=== PATIENT | male | born 1955 | race Caucasian/White ===

== ENCOUNTER 2017-10-27 23:47 | Inpatient (IN) | payer MEDICARE, MEDICAID ==
[2017-10-28] MEDS ORDERED: SODIUM CHLOR 0.9% 1000 ML INJ 1,000 ML IV (00:02)
[2017-10-28 00:15] LABS: BLOOD GAS BASE EXCESS -18.9 mmol/L (-2-2); BLOOD GAS CARBOXYHEMOGLOBIN 0.2 % (0-4); BLOOD GAS HCO3 10 mmol/L (22-26); BLOOD GAS METHEMOGLOBIN 0.8 % (0-2); BLOOD GAS O2 HGB SATURATION 98 % (90-100); BLOOD GAS OXYGEN CONTENT 24.2 Vol % (12.0-20.0); BLOOD GAS PCO2 43 mmHg (38-42); BLOOD GAS PO2 329 mmHG (61-120); BLOOD GAS TOTAL HGB 17.1 G/DL (12.0-16.0); CRITICAL VALUE YES; OXYGEN DEVICE VENTILATOR; TEMP CORR TO 98.6
[2017-10-28] MEDS ORDERED: SODIUM CHLORIDE 0.9% FLUSH 10 ML FLUSH IVF (00:15)
[2017-10-28] MEDS ORDERED: TERBUTALINE INJ 1 MG/ML AMP SQ ×3 (00:15→03:00)
[2017-10-28] MEDS: ASPIRIN 300 MG SUPP RECTAL (00:15)
[2017-10-28 00:16] LABS: DRAW SITE RT FEMORAL; FIO2 100 %; NUMBER OF ARTERIAL PUNCTURES 1; STAT YES; ULNAR PULSE PRESENT; VENT SETTINGS PRVC / AC /
[2017-10-28 00:19] LABS: AUTOMATED NEUTROPHIL # 2.8 TH/MM3 (1.8-7.7); BASOPHIL # 0.1 TH/MM3 (0-0.2); BASOPHIL % 0.8 % (0.0-2.0); EOSINOPHIL # 0.1 TH/MM3 (0-0.4); EOSINOPHIL % 0.9 % (0.0-4.0); HEMATOCRIT 53.8 % (39.0-51.0); HEMOGLOBIN 18.5 GM/DL (13.0-17.0); LYMPH % 66.6 % (9.0-44.0); LYMPHOCYTE # 6.3 TH/MM3 (1.0-4.8); MEAN CELL VOLUME 95.5 FL (80.0-100.0); MEAN CORPUSCULAR HEMOGLOBIN 32.8 PG (27.0-34.0); MEAN CORPUSCULAR HGB CONC 34.3 % (32.0-36.0); MEAN PLATELET VOLUME 9.7 FL (7.0-11.0); MONO % 1.7 % (0.0-8.0); MONOCYTE # 0.2 TH/MM3 (0-0.9); PLATELET COUNT 148 TH/MM3 (150-450); RED BLOOD COUNT 5.63 MIL/MM3 (4.50-5.90); RED CELL DISTRIBUTION WIDTH 14.6 % (11.6-17.2); WHITE BLOOD COUNT 9.4 TH/MM3 (4.0-11.0)
[2017-10-28 00:20] LABS: I-STAT BLOOD UREA NITROGEN 9 MG/DL (5-21); I-STAT CHLORIDE 98 MMOL/L (102-111); I-STAT CREATININE 1.1 MG/DL (0.6-1.3); I-STAT GLUCOSE 399 MG/DL (68-110); I-STAT HEMOGLOBIN (CALC.) 18.7 G/DL (13.0-17.0); I-STAT POTASSIUM 2.8 MMOL/L (3.6-5.0); I-STAT SODIUM 137 MMOL/L (137-144)
[2017-10-28 00:22] LABS: HEMO FLAGS AUTO DIFF
[2017-10-28] MEDS: SODIUM BICARBONATE 8.4% INJ 50 MEQ/50 ML SYR IV PUSH (00:30)
[2017-10-28 00:32] LABS: APTT (PATIENT) 25.9 SEC (24.3-30.1); PROTHROMBIN TIME - PATIENT 10.6 SEC (9.8-11.6)
[2017-10-28 00:36] LABS: CALCIUM 7.7 MG/DL (8.5-10.1); MAGNESIUM 2.8 MG/DL (1.5-2.5)
[2017-10-28 00:39] LABS: CREATINE KINASE 296 U/L (39-308); POTASSIUM 2.8 MEQ/L (3.5-5.1); TROPONIN I 0.06 NG/ML (0.02-0.05)
[2017-10-28 00:49] LABS: ALCOHOL 309 MG/DL (0-5)
[2017-10-28 00:54] LABS: CKMB 9.1 NG/ML (0.5-3.6)
[2017-10-28 00:55] LABS: BANDS 5 % (0-6); METAMYELOCYTES 1 % (0-1); MONOCYTES 1 % (0-8); MYELOCYTES 1 % (0-0); NEUTROPHIL # MANUAL DIFF 2.9 TH/MM3 (1.8-7.7); POLYS (SEG NEUTROPHILS) 24 % (16-70); WBC DIFF SAMPLE 100
[2017-10-28 00:56] LABS: LYMPHOCYTES 68 % (9-44); SCAN/DIFF FINAL DIFF MANUAL
[2017-10-28 00:59] LABS: PLATELET MORPHOLOGY NORMAL (NORMAL)
[2017-10-28 01:00] LABS: PLATELET ESTIMATE SMEAR NORMAL (NORMAL)
[2017-10-28 01:03] LABS: B-TYPE NATRIURETIC PEPTIDE 24 PG/ML (0-100)
[2017-10-28] MEDS: NOREPINEPHRINE 4 MG/4 ML AMP (01:07)
[2017-10-28] MEDS: IOHEXOL 350 MG/ML 10 ML VIAL (for RAD DIAG) IVCONTRAST (02:15)
[2017-10-28] MEDS: DOPamine 800 MG/500 ML INJ 500 ML IV ×2 (02:32→03:27)
[2017-10-28] MEDS: SODIUM CHLOR 0.9% 1000 ML INJ 1,000 ML IV ×4 (02:43→20:00)
[2017-10-28] MEDS ORDERED: CHLORHEXIDINE GLUCONATE 2 % 1 PACK (2 CLOTHS) TOP (02:45)
[2017-10-28] MEDS: NURSING INFORMATION XX (02:45)
[2017-10-28] MEDS ORDERED: RESP: ALBUTEROL 2.5 MG/IPRATROPIUM 0.5 MG NEB (PRN) INH (02:45)
[2017-10-28] MEDS ORDERED: ACETAMINOPHEN 325 MG TAB PO (02:45)
[2017-10-28] MEDS: PROPOFOL 500 MG/50 ML INJ 50 ML (03:12)
[2017-10-28] MEDS: PHENYLEPHRINE INJ 40 MG in DEXTROSE 5% IN WATE 500 ML INJ 496 ML IV (03:25)
[2017-10-28] MEDS: NOREPINEPHRINE-DEXTROSE DRIP 250 ML IV ×2 (03:26→04:39)
[2017-10-28] MEDS: POTASSIUM CHLOR 40 MEQ PREMIX 100 ML IV ×2 (03:30→06:17)
[2017-10-28] MEDS: PROPOFOL 1000 MG/100 ML IV ×4 (04:00→23:08)
[2017-10-28] MEDS: ENOXAPARIN SODIUM 40 MG/0.4 ML SYRINGE SQ (04:00)
[2017-10-28] MEDS: CHLORHEXIDINE GLUCONATE 2 % 1 PACK (2 CLOTHS) TOP (04:00)
[2017-10-28] MEDS: RESP: ALBUTEROL 2.5 MG/IPRATROPIUM 0.5 MG NEB (SCH) NEB ×4 (04:10→20:23)
[2017-10-28] MEDS: ROCURONIUM INJ 50 MG/5 ML VIAL IV (04:30)
[2017-10-28] MEDS: levETIRAcetam INJ 100 ML IV ×2 (04:39→15:38)
[2017-10-28 04:59] LABS: BLOOD GAS BASE EXCESS -22.1 mmol/L (-2-2); BLOOD GAS HCO3 7 mmol/L (22-26); BLOOD GAS METHEMOGLOBIN 1.7 % (0-2); BLOOD GAS O2 HGB SATURATION 93 % (90-100); BLOOD GAS OXYGEN CONTENT 21.7 Vol % (12.0-20.0); BLOOD GAS PCO2 33 mmHg (38-42); BLOOD GAS PO2 109 mmHg (61-120); BLOOD GAS TOTAL HGB 16.6 G/DL (12.0-16.0); CRITICAL VALUE YES; OXYGEN DEVICE VENTILATOR; TEMP CORR TO 98.6
[2017-10-28 05:00] LABS: DRAW SITE RT RADIAL; FIO2 50 %; NUMBER OF ARTERIAL PUNCTURES 1; STAT NO; ULNAR PULSE PRESENT
[2017-10-28 05:06] LABS: LACTIC ACID 10.6 mmol/L (0.4-2.0)
[2017-10-28 05:16] LABS: CREATINE KINASE 1165 U/L (39-308)
[2017-10-28 05:19] LABS: TROPONIN I 4.46 NG/ML (0.02-0.05)
[2017-10-28] MEDS: SODIUM BICARBONATE 8.4% SOLN 50 MEQ/50 ML VIAL IV (05:25)
[2017-10-28 05:33] LABS: CKMB 45.6 NG/ML (0.5-3.6); CKMB % 3.9 % (0.0-4.0)
[2017-10-28] MEDS: DEXT 5%-NACL 0.9% 1000 ML INJ 1,000 ML IV ×2 (05:33→10:33)
[2017-10-28] MEDS: INSULIN HUMAN REGULAR 1,000 UNITS/10 ML VIAL IV PUSH (05:38)
[2017-10-28] MEDS ORDERED: POTASSIUM CHLOR 40 MEQ PREMIX 100 ML IV ×2 (05:45)
[2017-10-28] MEDS ORDERED: SODIUM BICARBONATE 8.4% SOLN 50 MEQ/50 ML VIAL IV PUSH (05:45)
[2017-10-28] MEDS ORDERED: POTASSIUM CHLOR 20 MEQ PREMIX 100 ML IV ×4 (05:45)
[2017-10-28] MEDS ORDERED: SODIUM PHOSPHATE INJ 15 MMOL in SODIUM CHLORIDE 0.9% INJ 100 ML IV (05:45)
[2017-10-28] MEDS: INSULIN ASPART SUPPLEMENTAL SCALE SQ ×2 (06:00→12:00)
[2017-10-28] MEDS: SODIUM BICARBONATE 8.4% INJ 150 MEQ in WATER STERILE FOR INJ 850 ML IV ×2 (06:03→12:49)
[2017-10-28] MEDS: CALCIUM CHLORIDE INJ 1 GM in SODIUM CHLORIDE 0.9% INJ 100 ML IV (06:03)
[2017-10-28] MEDS: INSULIN REGULAR (IV INFUSION) 100 UNITS in SODIUM CHLORIDE 0.9% INJ 99 ML IV ×2 (06:12→13:19)
[2017-10-28 06:37] LABS: AUTOMATED NEUTROPHIL # 14.7 TH/MM3 (1.8-7.7); BASOPHIL # 0.1 TH/MM3 (0-0.2); BASOPHIL % 0.6 % (0.0-2.0); HEMATOCRIT 47.9 % (39.0-51.0); HEMO FLAGS DIFF FINAL; LYMPH % 12.8 % (9.0-44.0); LYMPHOCYTE # 2.3 TH/MM3 (1.0-4.8); MEAN CELL VOLUME 96.2 FL (80.0-100.0); MEAN CORPUSCULAR HEMOGLOBIN 32.2 PG (27.0-34.0); MEAN CORPUSCULAR HGB CONC 33.5 % (32.0-36.0); MONO % 5.3 % (0.0-8.0); NEUT % 81.3 % (16.0-70.0); PLATELET COUNT 175 TH/MM3 (150-450); RED BLOOD COUNT 4.98 MIL/MM3 (4.50-5.90); RED CELL DISTRIBUTION WIDTH 14.1 % (11.6-17.2)
[2017-10-28 07:22] LABS: ALKALINE PHOSPHATASE 55 U/L (45-117); ALT (GPT) 276 U/L (12-78); ANION GAP 26 MEQ/L (5-15); AST (GOT) 636 U/L (15-37); BETA-HYDROXYBUTYRATE 1.33 MMOL/L (0.00-0.39); BICARBONATE 12.3 MEQ/L (21.0-32.0); BLOOD UREA NITROGEN 10 MG/DL (7-18); CHLORIDE 101 MEQ/L (98-107); CREATININE 1.47 MG/DL (0.60-1.30); GLOMERULAR FILTRATION RATE 49 ML/MIN (>89); LIPASE 237 U/L (73-393); MAGNESIUM 1.9 MG/DL (1.5-2.5); PHOSPHORUS 4.5 MG/DL (2.5-4.9); POTASSIUM 5.4 MEQ/L (3.5-5.1); SODIUM (NA) 139 MEQ/L (136-145); TOTAL BILIRUBIN ADULT 0.3 MG/DL (0.2-1.0); TOTAL PROTEIN 6.1 GM/DL (6.4-8.2)
[2017-10-28 07:24] LABS: MRSA PCR SURVEILLANCE MRSA NOT DETECTED (NOT DETECT)
[2017-10-28 07:25] LABS: CALCIUM 6.3 MG/DL (8.5-10.1); CALCIUM-PROTEIN CORRECTED 6.8 MG/DL (8.5-10.1); GLUCOSE,RANDOM 541 MG/DL (74-106)
[2017-10-28 08:13] LABS: BLOOD GAS BASE EXCESS -21.2 mmol/L (-2-2); BLOOD GAS CARBOXYHEMOGLOBIN 0.1 % (0-4); BLOOD GAS HCO3 7 mmol/L (22-26); BLOOD GAS METHEMOGLOBIN 1.9 % (0-2); BLOOD GAS O2 HGB SATURATION 92 % (90-100); BLOOD GAS OXYGEN CONTENT 20.3 Vol % (12.0-20.0); BLOOD GAS PCO2 26 mmHg (38-42); BLOOD GAS PO2 103 mmHg (61-120); BLOOD GAS TOTAL HGB 15.6 G/DL (12.0-16.0); TEMP CORR TO 98.6
[2017-10-28 08:14] LABS: CRITICAL VALUE YES; DRAW SITE ART LINE; OXYGEN DEVICE VENT
[2017-10-28 08:15] LABS: FIO2 60 %
[2017-10-28 08:16] LABS: STAT NO; ULNAR PULSE PRESENT; VENT SETTINGS PRVC/AC24/500/5
[2017-10-28] MEDS: SODIUM BICARBONATE 8.4% SOLN 50 MEQ/50 ML VIAL IV PUSH (08:23)
[2017-10-28 08:32] LABS: HEMATOCRIT 46.8 % (39.0-51.0); HEMOGLOBIN 15.8 GM/DL (13.0-17.0); MEAN CELL VOLUME 96.1 FL (80.0-100.0); MEAN CORPUSCULAR HEMOGLOBIN 32.5 PG (27.0-34.0); MEAN CORPUSCULAR HGB CONC 33.8 % (32.0-36.0); MEAN PLATELET VOLUME 9.1 FL (7.0-11.0); PLATELET COUNT 187 TH/MM3 (150-450); RED BLOOD COUNT 4.87 MIL/MM3 (4.50-5.90); RED CELL DISTRIBUTION WIDTH 14.3 % (11.6-17.2); REVIEW FLAG FINAL
[2017-10-28] MEDS: PIPERACIL-TAZO 3.375 GM PREMIX 50 ML IV ×2 (08:34→15:05)
[2017-10-28] MEDS: SODIUM CHLORIDE 0.9% FLUSH 10 ML FLUSH IV FLUSH ×2 (08:42→21:00)
[2017-10-28] MEDS: ARTIFICIAL TEARS OPTH SOLN 15 ML BTL EACH EYE ×3 (08:43→17:24)
[2017-10-28] MEDS: ASPIRIN 81 MG CHEW TAB CHEW (09:00)
[2017-10-28] MEDS ORDERED: FAMOTIDINE 20 MG TAB TUBE (09:00)
[2017-10-28] MEDS: CHLORHEXIDINE 0.12% (ORAL KIT) 15 ML CUP MT ×2 (09:14→20:00)
[2017-10-28] MEDS: VANCOMYCIN INJ 1,000 MG in SODIUM CHLOR 0.9% 250 ML INJ 250 ML IV (09:16)
[2017-10-28 09:20] LABS: CREATINE KINASE 1956 U/L (39-308)
[2017-10-28 09:23] LABS: INTERNATIONAL NORMALIZED RATIO 1.1 RATIO
[2017-10-28 09:24] LABS: APTT (PATIENT) 22.1 SEC (24.3-30.1); PROTHROMBIN TIME - PATIENT 11.2 SEC (9.8-11.6)
[2017-10-28 09:33] LABS: CKMB % 3.4 % (0.0-4.0)
[2017-10-28 09:40] LABS: TROPONIN I 7.32 NG/ML (0.02-0.05)
[2017-10-28] MEDS: HEPARIN-D5W 25,000 U/250 ML 250 ML IV (09:50)
[2017-10-28 10:25] LABS: BLOOD GAS BASE EXCESS -10.8 mmol/L (-2-2); BLOOD GAS CARBOXYHEMOGLOBIN 0.7 % (0-4); BLOOD GAS HCO3 14 mmol/L (22-26); BLOOD GAS METHEMOGLOBIN 1.9 % (0-2); BLOOD GAS O2 HGB SATURATION 95 % (90-100); BLOOD GAS OXYGEN CONTENT 19.8 Vol % (12.0-20.0); BLOOD GAS PCO2 28 mmHg (38-42); BLOOD GAS PO2 93 mmHg (61-120); BLOOD GAS TOTAL HGB 14.8 G/DL (12.0-16.0); CRITICAL VALUE YES; TEMP CORR TO 98.6
[2017-10-28 10:26] LABS: DRAW SITE ART LINE; FIO2 60 %; OXYGEN DEVICE VENT; ULNAR PULSE PRESENT; VENT SETTINGS PRVC/AC 24/600/5
[2017-10-28 11:42] LABS: ANION GAP 19 MEQ/L (5-15); BICARBONATE 16.4 MEQ/L (21.0-32.0); BLOOD UREA NITROGEN 11 MG/DL (7-18); CHLORIDE 105 MEQ/L (98-107); CREATININE 1.71 MG/DL (0.60-1.30); GLOMERULAR FILTRATION RATE 41 ML/MIN (>89); GLUCOSE,RANDOM 387 MG/DL (74-106); MAGNESIUM 1.4 MG/DL (1.5-2.5); PHOSPHORUS 0.6 MG/DL (2.5-4.9); SODIUM (NA) 140 MEQ/L (136-145)
[2017-10-28 11:43] LABS: AMPHETAMINE, URINE NEG (NEG); BENZODIAZEPINE,URINE NEG (NEG); CANNABINOIDS, URINE NEG (NEG); COCAINE, URINE NEG (NEG)
[2017-10-28 11:44] LABS: BARBITURATES, URINE NEG (NEG)
[2017-10-28 11:45] LABS: POTASSIUM 3.8 MEQ/L (3.5-5.1)
[2017-10-28 12:19] LABS: CALCIUM-PROTEIN CORRECTED 7.8 MG/DL (8.5-10.1); TOTAL PROTEIN 5.6 GM/DL (6.4-8.2)
[2017-10-28] MEDS: MAGNESIUM SULFATE 1 GM PREMIX 100 ML IV ×2 (12:49→13:52)
[2017-10-28] MEDS: POTASSIUM CHLOR 20 MEQ PREMIX 100 ML IV (13:53)
[2017-10-28] MEDS ORDERED: DEXTROSE 50% IN WATER 50 ML VIAL(D50) IV PUSH (15:30)
[2017-10-28] MEDS ORDERED: INSULIN REGULAR (IV INFUSION) 100 UNITS in SODIUM CHLORIDE 0.9% INJ 99 ML IV (15:30)
[2017-10-28] MEDS: MISC INFORMATION OTHER (15:30)
[2017-10-28 15:38] LABS: AUTOMATED NEUTROPHIL # 8.4 TH/MM3 (1.8-7.7); BASOPHIL % 0.1 % (0.0-2.0); HEMATOCRIT 44.1 % (39.0-51.0); HEMO FLAGS DIFF FINAL; HEMOGLOBIN 15.6 GM/DL (13.0-17.0); LYMPH % 6.8 % (9.0-44.0); LYMPHOCYTE # 0.7 TH/MM3 (1.0-4.8); MEAN CELL VOLUME 91.2 FL (80.0-100.0); MEAN CORPUSCULAR HEMOGLOBIN 32.1 PG (27.0-34.0); MEAN CORPUSCULAR HGB CONC 35.3 % (32.0-36.0); MONOCYTE # 0.8 TH/MM3 (0-0.9); NEUT % 85.1 % (16.0-70.0); PLATELET COUNT 125 TH/MM3 (150-450); RED BLOOD COUNT 4.84 MIL/MM3 (4.50-5.90); RED CELL DISTRIBUTION WIDTH 14.6 % (11.6-17.2); WHITE BLOOD COUNT 9.8 TH/MM3 (4.0-11.0)
[2017-10-28 16:04] LABS: APTT (PATIENT) 21.6 SEC (24.3-30.1)
[2017-10-28 16:17] LABS: LACTIC ACID 6.9 mmol/L (0.4-2.0)
[2017-10-28] MEDS: fentaNYL DRIP 250 ML IV (17:19)
[2017-10-28] MEDS: THIAMINE INJ 100 MG in SODIUM CHLORIDE 0.9% INJ 100 ML IV (18:00)
[2017-10-28] MEDS: hydrALAZINE HCL 20 MG/ML VIAL IV PUSH (18:08)
[2017-10-28] MEDS: FAMOTIDINE 20 MG TAB TUBE (21:00)
[2017-10-28] MEDS: LABETALOL HCL 100 MG/20 ML VIAL IV PUSH (21:32)
[2017-10-29 00:14] LABS: APTT (PATIENT) 32.8 SEC (24.3-30.1)
[2017-10-29 00:25] LABS: ANION GAP 14 MEQ/L (5-15); BICARBONATE 25.4 MEQ/L (21.0-32.0); BLOOD UREA NITROGEN 12 MG/DL (7-18); CHLORIDE 104 MEQ/L (98-107); CREATININE 1.39 MG/DL (0.60-1.30); GLOMERULAR FILTRATION RATE 52 ML/MIN (>89); GLUCOSE,RANDOM 208 MG/DL (74-106); MAGNESIUM 1.8 MG/DL (1.5-2.5); POTASSIUM 3.8 MEQ/L (3.5-5.1); SODIUM (NA) 143 MEQ/L (136-145)
[2017-10-29 00:37] LABS: CALCIUM-PROTEIN CORRECTED 7.8 MG/DL (8.5-10.1); TOTAL PROTEIN 5.6 GM/DL (6.4-8.2)
[2017-10-29] MEDS ORDERED: DOPamine 400 MG/250 ML INJ 250 ML IV (00:45)
[2017-10-29] MEDS: SODIUM CHLOR 0.9% 1000 ML INJ 1,000 ML IV ×3 (01:04→16:04)
[2017-10-29] MEDS: PROPOFOL 1000 MG/100 ML IV ×4 (02:35→16:00)
[2017-10-29] MEDS: levETIRAcetam INJ 100 ML IV ×2 (04:00→14:59)
[2017-10-29] MEDS: CHLORHEXIDINE GLUCONATE 2 % 1 PACK (2 CLOTHS) TOP (04:00)
[2017-10-29] MEDS: RESP: ALBUTEROL 2.5 MG/IPRATROPIUM 0.5 MG NEB (SCH) NEB ×4 (04:16→20:34)
[2017-10-29 05:37] LABS: AUTOMATED NEUTROPHIL # 5.9 TH/MM3 (1.8-7.7); BASOPHIL % 0.4 % (0.0-2.0); HEMATOCRIT 37.3 % (39.0-51.0); HEMOGLOBIN 13.2 GM/DL (13.0-17.0); LYMPH % 12.4 % (9.0-44.0); LYMPHOCYTE # 0.9 TH/MM3 (1.0-4.8); MEAN CELL VOLUME 90.2 FL (80.0-100.0); MEAN CORPUSCULAR HEMOGLOBIN 31.9 PG (27.0-34.0); MEAN CORPUSCULAR HGB CONC 35.3 % (32.0-36.0); MONO % 7.3 % (0.0-8.0); MONOCYTE # 0.5 TH/MM3 (0-0.9); NEUT % 79.9 % (16.0-70.0); PLATELET COUNT 85 TH/MM3 (150-450); RED BLOOD COUNT 4.14 MIL/MM3 (4.50-5.90); RED CELL DISTRIBUTION WIDTH 14.1 % (11.6-17.2); WHITE BLOOD COUNT 7.4 TH/MM3 (4.0-11.0)
[2017-10-29 05:47] LABS: HEMO FLAGS AUTO DIFF
[2017-10-29 06:03] LABS: APTT (PATIENT) 36.9 SEC (24.3-30.1)
[2017-10-29 06:05] LABS: ALBUMIN 2.3 GM/DL (3.4-5.0); ALKALINE PHOSPHATASE 25 U/L (45-117); ALT (GPT) 206 U/L (12-78); ANION GAP 13 MEQ/L (5-15); AST (GOT) 302 U/L (15-37); BETA-HYDROXYBUTYRATE 0.11 MMOL/L (0.00-0.39); BICARBONATE 23.8 MEQ/L (21.0-32.0); BLOOD UREA NITROGEN 14 MG/DL (7-18); CALCIUM 6.5 MG/DL (8.5-10.1); CHLORIDE 106 MEQ/L (98-107); CREATININE 1.17 MG/DL (0.60-1.30); DIRECT BILIRUBIN ADULT 0.2 MG/DL (0.0-0.2); GLOMERULAR FILTRATION RATE 63 ML/MIN (>89); GLUCOSE,RANDOM 210 MG/DL (74-106); INDIRECT BILIRUBIN 0.2 MG/DL (0.0-0.8); MAGNESIUM 1.8 MG/DL (1.5-2.5); PHOSPHORUS 3.7 MG/DL (2.5-4.9); POTASSIUM 3.6 MEQ/L (3.5-5.1); SODIUM (NA) 143 MEQ/L (136-145); TOTAL BILIRUBIN ADULT 0.4 MG/DL (0.2-1.0)
[2017-10-29 06:12] LABS: CALCIUM-PROTEIN CORRECTED 7.5 MG/DL (8.5-10.1)
[2017-10-29] MEDS: CHLORHEXIDINE 0.12% (ORAL KIT) 15 ML CUP MT ×2 (08:00→20:00)
[2017-10-29] MEDS: PIPERACIL-TAZO 3.375 GM PREMIX 50 ML IV ×4 (08:00→20:16)
[2017-10-29] MEDS: SODIUM CHLORIDE 0.9% FLUSH 10 ML FLUSH IV FLUSH ×2 (08:33→20:17)
[2017-10-29] MEDS: ASPIRIN 81 MG CHEW TAB CHEW (08:33)
[2017-10-29] MEDS: ARTIFICIAL TEARS OPTH SOLN 15 ML BTL EACH EYE ×3 (08:33→17:00)
[2017-10-29] MEDS: FAMOTIDINE 20 MG TAB TUBE ×2 (08:34→20:17)
[2017-10-29 08:35] LABS: PLATELET ESTIMATE SMEAR LOW (NORMAL); PLATELET MORPHOLOGY NORMAL (NORMAL)
[2017-10-29 08:36] LABS: SCAN/DIFF AUTO DIFF CONFIRMED
[2017-10-29] MEDS: MISC INFORMATION OTHER (08:45)
[2017-10-29] MEDS ORDERED: DEXTROSE 50% IN WATER 50 ML VIAL(D50) IV PUSH (08:45)
[2017-10-29] MEDS: THIAMINE INJ 100 MG in SODIUM CHLORIDE 0.9% INJ 100 ML IV (09:46)
[2017-10-29 10:09] LABS: TROPONIN I 1.78 NG/ML (0.02-0.05)
[2017-10-29] MEDS: HEPARIN-D5W 25,000 U/250 ML 250 ML IV (12:28)
[2017-10-29 13:09] LABS: APTT (PATIENT) 34.4 SEC (24.3-30.1)
[2017-10-29 14:46] LABS: HEMOGLOBIN A1C 7.5 % (4.3-6.0)
[2017-10-29 15:09] LABS: AUTOMATED NEUTROPHIL # 5.5 TH/MM3 (1.8-7.7); BASOPHIL % 0.4 % (0.0-2.0); EOSINOPHIL % 0.1 % (0.0-4.0); HEMATOCRIT 35.9 % (39.0-51.0); LYMPH % 13.7 % (9.0-44.0); MEAN CELL VOLUME 90.9 FL (80.0-100.0); MEAN CORPUSCULAR HEMOGLOBIN 32.8 PG (27.0-34.0); MEAN PLATELET VOLUME 8.9 FL (7.0-11.0); MONO % 7.6 % (0.0-8.0); MONOCYTE # 0.5 TH/MM3 (0-0.9); NEUT % 78.2 % (16.0-70.0); PLATELET COUNT 81 TH/MM3 (150-450); RED BLOOD COUNT 3.95 MIL/MM3 (4.50-5.90); RED CELL DISTRIBUTION WIDTH 14.5 % (11.6-17.2)
[2017-10-29 15:11] LABS: HEMO FLAGS AUTO DIFF
[2017-10-29 15:31] LABS: ALBUMIN 2.2 GM/DL (3.4-5.0); ANION GAP 12 MEQ/L (5-15); AST (GOT) 293 U/L (15-37); BICARBONATE 24.4 MEQ/L (21.0-32.0); BLOOD UREA NITROGEN 15 MG/DL (7-18); CALCIUM 6.4 MG/DL (8.5-10.1); CHLORIDE 108 MEQ/L (98-107); CREATININE 0.91 MG/DL (0.60-1.30); GLOMERULAR FILTRATION RATE 84 ML/MIN (>89); GLUCOSE,RANDOM 165 MG/DL (74-106); POTASSIUM 3.3 MEQ/L (3.5-5.1); SODIUM (NA) 144 MEQ/L (136-145)
[2017-10-29 15:37] LABS: ALKALINE PHOSPHATASE 24 U/L (45-117); ALT (GPT) 206 U/L (12-78); TOTAL BILIRUBIN ADULT 0.4 MG/DL (0.2-1.0); TOTAL PROTEIN 5.3 GM/DL (6.4-8.2)
[2017-10-29 15:41] LABS: CALCIUM-PROTEIN CORRECTED 7.3 MG/DL (8.5-10.1)
[2017-10-29] MEDS: INSULIN REGULAR (IV INFUSION) 100 UNITS in SODIUM CHLORIDE 0.9% INJ 99 ML IV (16:03)
[2017-10-29 16:13] LABS: BANDS 11 % (0-6); LYMPHOCYTES 8 % (9-44); MONOCYTES 6 % (0-8); POLYS (SEG NEUTROPHILS) 75 % (16-70); WBC DIFF SAMPLE 100
[2017-10-29 16:14] LABS: PLATELET ESTIMATE SMEAR LOW (NORMAL); PLATELET MORPHOLOGY ENLARGED (NORMAL); SCAN/DIFF FINAL DIFF MANUAL
[2017-10-29] MEDS: POTASSIUM CHLOR 20 MEQ PREMIX 100 ML IV (17:00)
[2017-10-29 20:00] LABS: APTT (PATIENT) 33.8 SEC (24.3-30.1)
[2017-10-30] MEDS: PIPERACIL-TAZO 3.375 GM PREMIX 50 ML IV ×2 (01:50→08:04)
[2017-10-30 02:28] LABS: APTT (PATIENT) 31.4 SEC (24.3-30.1)
[2017-10-30] MEDS: LABETALOL HCL 100 MG/20 ML VIAL IV PUSH ×5 (02:28→10:38)
[2017-10-30] MEDS: RESP: ALBUTEROL 2.5 MG/IPRATROPIUM 0.5 MG NEB (SCH) NEB ×2 (04:29→09:17)
[2017-10-30] MEDS: levETIRAcetam INJ 100 ML IV (04:39)
[2017-10-30 05:38] LABS: AUTOMATED NEUTROPHIL # 6.1 TH/MM3 (1.8-7.7); BASOPHIL % 0.1 % (0.0-2.0); HEMATOCRIT 36.5 % (39.0-51.0); HEMOGLOBIN 12.7 GM/DL (13.0-17.0); LYMPH % 10.4 % (9.0-44.0); LYMPHOCYTE # 0.8 TH/MM3 (1.0-4.8); MEAN CELL VOLUME 92.1 FL (80.0-100.0); MEAN CORPUSCULAR HGB CONC 34.7 % (32.0-36.0); MEAN PLATELET VOLUME 9.5 FL (7.0-11.0); MONO % 8.2 % (0.0-8.0); MONOCYTE # 0.6 TH/MM3 (0-0.9); NEUT % 81.3 % (16.0-70.0); PLATELET COUNT 77 TH/MM3 (150-450); RED BLOOD COUNT 3.96 MIL/MM3 (4.50-5.90); RED CELL DISTRIBUTION WIDTH 14.8 % (11.6-17.2); WHITE BLOOD COUNT 7.5 TH/MM3 (4.0-11.0)
[2017-10-30] MEDS ORDERED: hydrALAZINE HCL 20 MG/ML VIAL IV PUSH (06:00)
[2017-10-30 06:07] LABS: ALBUMIN 2.1 GM/DL (3.4-5.0); ALKALINE PHOSPHATASE 26 U/L (45-117); ALT (GPT) 179 U/L (12-78); ANION GAP 8 MEQ/L (5-15); AST (GOT) 274 U/L (15-37); BICARBONATE 24.7 MEQ/L (21.0-32.0); BLOOD UREA NITROGEN 15 MG/DL (7-18); CALCIUM 6.1 MG/DL (8.5-10.1); CHLORIDE 110 MEQ/L (98-107); CREATININE 0.78 MG/DL (0.60-1.30); GLOMERULAR FILTRATION RATE 101 ML/MIN (>89); GLUCOSE,RANDOM 181 MG/DL (74-106); MAGNESIUM 2.1 MG/DL (1.5-2.5); PHOSPHORUS 2.7 MG/DL (2.5-4.9); POTASSIUM 3.5 MEQ/L (3.5-5.1); SODIUM (NA) 143 MEQ/L (136-145); TOTAL BILIRUBIN ADULT 0.6 MG/DL (0.2-1.0); TOTAL PROTEIN 5.5 GM/DL (6.4-8.2)
[2017-10-30 06:13] LABS: HEMO FLAGS AUTO DIFF
[2017-10-30 06:15] LABS: CALCIUM-PROTEIN CORRECTED 6.8 MG/DL (8.5-10.1)
[2017-10-30] MEDS: CHLORHEXIDINE 0.12% (ORAL KIT) 15 ML CUP MT (08:04)
[2017-10-30] MEDS: SODIUM CHLORIDE 0.9% FLUSH 10 ML FLUSH IV FLUSH ×2 (08:05)
[2017-10-30] MEDS: FAMOTIDINE 20 MG TAB TUBE (08:05)
[2017-10-30] MEDS: ASPIRIN 81 MG CHEW TAB CHEW ×2 (08:05→08:06)
[2017-10-30] MEDS: THIAMINE INJ 100 MG in SODIUM CHLORIDE 0.9% INJ 100 ML IV (08:05)
[2017-10-30] MEDS: ARTIFICIAL TEARS OPTH SOLN 15 ML BTL EACH EYE (08:05)
[2017-10-30] MEDS: HEPARIN-D5W 25,000 U/250 ML 250 ML IV (08:48)
[2017-10-30 09:46] LABS: APTT (PATIENT) 33.9 SEC (24.3-30.1)
[2017-10-30 10:58] LABS: BANDS 8 % (0-6); LYMPHOCYTES 6 % (9-44); MONOCYTES 4 % (0-8); NEUTROPHIL # MANUAL DIFF 6.8 TH/MM3 (1.8-7.7); PLATELET ESTIMATE SMEAR LOW (NORMAL); PLATELET MORPHOLOGY NORMAL (NORMAL); POLYS (SEG NEUTROPHILS) 82 % (16-70); SCAN/DIFF FINAL DIFF MANUAL; WBC DIFF SAMPLE 100
[2017-10-30] MEDS: LORazepam 2 MG/ML VIAL IV PUSH ×2 (11:08→11:37)
[2017-10-30] MEDS: MORPHINE SULFATE 8 MG/ML INJ IV PUSH (11:08)
[2017-10-30] MEDS ORDERED: MORPHINE SULFATE 4 MG/ML INJ IV PUSH (11:30)
[2017-10-30] MEDS ORDERED: FUROSEMIDE 20 MG/2 ML VIAL IV PUSH (11:30)
[2017-10-30] MEDS ORDERED: MORPHINE SULFATE 8 MG/ML INJ IV PUSH (11:30)
[2017-10-30] MEDS ORDERED: LORazepam 2 MG/ML VIAL IV PUSH ×2 (11:30)
[2017-10-30] MEDS: MORPHINE SULFATE 4 MG/ML INJ IV PUSH ×2 (11:37→11:40)
[2017-10-30] MEDS ORDERED: CALCIUM CHLORIDE INJ 1 GM in SODIUM CHLORIDE 0.9% INJ 100 ML IV (13:00)
== END 2017-10-30 12:05 | disposition expired | DRG 871 ==
LOC: NEPC 23:47 → NEDA 10-28 00:55 → HIME 10-28 02:10
PROC: 5A1945Z Respiratory Ventilation, 24-96 Consecutive Hours (ICD-10-PCS; principal; 2017-10-28)
PROC: 03HY32Z Insertion of Monitoring Device into Upper Artery, Percutaneous Approach (ICD-10-PCS; 2017-10-28)
PROC: 06HY33Z Insertion of Infusion Device into Lower Vein, Percutaneous Approach (ICD-10-PCS; 2017-10-28)
PROC: 5A12012 Performance of Cardiac Output, Single, Manual (ICD-10-PCS; 2017-10-28)
DX: A41.9 Sepsis, unspecified organism (principal); I21.4 Non-ST elevation (NSTEMI) myocardial infarction; J96.00 Acute respiratory failure, unspecified whether with hypoxia or hypercapnia; R57.0 Cardiogenic shock; R65.21 Severe sepsis with septic shock; G93.1 Anoxic brain damage, not elsewhere classified; N17.9 Acute kidney failure, unspecified; C90.00 Multiple myeloma not having achieved remission; E87.2 Acidosis; I42.9 Cardiomyopathy, unspecified; D75.1 Secondary polycythemia; E11.65 Type 2 diabetes mellitus with hyperglycemia; E83.51 Hypocalcemia; E87.5 Hyperkalemia; I10 Essential (primary) hypertension; N35.9 Urethral stricture, unspecified; E87.6 Hypokalemia; R33.9 Retention of urine, unspecified; G25.3 Myoclonus; F10.129 Alcohol abuse with intoxication, unspecified; F41.8 Other specified anxiety disorders; Y90.8 Blood alcohol level of 240 mg/100 ml or more; Z66 Do not resuscitate; Z79.84 Long term (current) use of oral hypoglycemic drugs; Z85.038 Personal history of other malignant neoplasm of large intestine; Z86.711 Personal history of pulmonary embolism
CPT/HCPCS: 36556; 36600; 70450; 70551; 71045; 71275; 72125; 80048; 80053; 80076; 80307; 82010; 82310; 82550; 82552; 82805; 82948; 83036; 83605; 83690; 83735; 83880; 84100; 84132; 84155; 84484; 85007; 85025; 85027; 85610; 85730; 86403; 86850; 86900; 86901; 87040; 87070; 87147; 87186; 87205; 87641; 92950; 93005; 93306; 94002; 94003; 94640; 94664; 95819; 96374; 99291-25